=== PATIENT | male | born 1995 | race Caucasian/White ===

== ENCOUNTER 2022-07-28 09:12 | Outpatient (CLI) | payer BC, SELFPAY ==
[2022-07-28 16:48] LABS: Basophils Percent Auto 0.3 % (0.2-1.2); Eosinophils Absolute Auto 0.1 K/mm3 (0-0.3); Eosinophils Percent Auto 0.7 % (0-4.4); Hematocrit 42.8 % (42.0-52.0); Hemoglobin 13.8 g/dL (14.0-18.0); Immature Granulocyte Absolute 0.02 K/mm3 (0.00-0.031); Immature Granulocyte Percent A 0.3 % (0-0.5); Lymphocytes Absolute Auto 1.99 K/mm3 (0.9-3.2); Lymphocytes Percent Auto 28.5 % (18.3-44.2); Mean Corpuscular HGB Conc 32.2 g/dl (32-36); Mean Corpuscular Hemoglobin 27.4 pg (26-34); Mean Corpuscular Volume 84.9 fl (80-100); Mean Platelet Volume 10.4 fl (7.4-10.4); Monocytes Absolute Auto 0.6 K/mm3 (0.1-0.6); Monocytes Percent Auto 7.9 % (2.6-8.5); Neutrophils Absolute Auto 4.4 K/mm3 (1.3-6.7); Neutrophils Percent Auto 62.3 % (45.5-73.1); Platelet Count Result 254 k/mm3 (150-375); Red Blood Count 5.04 M/mm3 (4.6-6.20); Red Cell Distribution Width 12.6 % (11.5-14.5)
[2022-07-28 17:45] LABS: Alanine Aminotransferase 61 U/L (6-50); Albumin Level 4.5 g/dL (3.5-5.1); Alkaline Phosphatase 90 U/L (38-126); Anion Gap 9 mmol/L (8-16); Aspartate Amino Transferase 63 U/L (17-59); Bilirubin,Total 0.5 mg/dL (0.2-1.3); Blood Urea Nitrogen 13 mg/dL (9-20); Calcium 9.3 mg/dL (8.4-10.2); Carbon Dioxide 26 mmol/L (22-30); Chloride 102 mmol/L (98-107); Cholesterol 151 mg/dL (0-200); Estimated Glomerular Filt Rate > 60; Glucose 90 mg/dL (65-110); HDL Direct 40 mg/dL; Potassium 4.4 mmol/L (3.4-5.0); Sodium 137 mmol/L (137-145); Triglycerides 115 mg/dL (<150)
[2022-07-28 17:57] LABS: LDL Cholesterol Direct 73 mg/dL
[2022-07-28 17:59] LABS: Hemoglobin A1C 5.1 % (<5.7)
[2022-08-01 13:39] LABS: Insulin Level Total 26.2 uIU/mL (<=19.6)
== END 2022-07-28 09:13 | disposition home or self-care (01) ==
LOC: ANHGOSHLAB 09:16
PROVIDERS: PCP Physician Assistant; Visit Provider Physician Assistant
DX: Z13.220 Encounter for screening for lipoid disorders (principal); Z13.1 Encounter for screening for diabetes mellitus; E66.01 Morbid (severe) obesity due to excess calories; Z79.899 Other long term (current) drug therapy
CPT/HCPCS: 36415; 80053; 80061; 83036; 83525; 84439; 84443; 85025

== ENCOUNTER 2023-02-05 19:06 | Emergency (ER) | payer BC, SELFPAY ==
[2023-02-05 19:20] VITALS: BP 152/88; PULSE 105; RESP 16; TEMP 36.8; O2SAT 100
--- NOTE | 2023-02-05 20:11 | ED.WOUNDLAC ---
HPI - Wound/Laceration General Chief Complaint: Wound/Laceration Stated Complaint: wound on chest Time Seen by Provider: 02/05/23 19:40 Source: patient, RN notes reviewed and old records reviewed Mode of arrival: ambulatory Limitations: no limitations History of Present Illness HPI narrative: 27 year [facility] complaint of small open area under left breast. He had what he thought was a scsb there and it came off when he showered and now 0.5cm diameter open minimal depth wound noted with some surrounding redness and tenderness on palpation. Patient reports that he put some Neosporin ointment and band-aide to area. Patient denies any fevers,chills or sweats or any body aches. Onset (ago): hour(s) (yesterday scab and today noted whole in skin under breast) Location: other (under left breast) Treatments prior to arrival: bandage and other (Neosporin ointment) Related Data Home Medications Medication Instructions Recorded Confirmed albuterol sulfate 90 mcg/actuation 90 inh inhalation Q4-6H 02/05/23 02/05/23 aerosol inhaler budesonide-formoterol HFA 160 2 puff inhalation HS 02/05/23 02/05/23 mcg-4.5 mcg/actuation aerosol inhaler (Symbicort) citalopram 10 mg tablet 10 mg PO DAILY 02/05/23 02/05/23 fluticasone propionate 50 2 spray intranasal DAILY 02/05/23 02/05/23 mcg/actuation nasal spray,suspension Allergies Allergy/AdvReac Type Severity Reaction Status Date / Time No Known Allergies Allergy Verified 02/05/23 19:15 Review of Systems Review of Systems: CONSTITUTIONAL: Denies fever, chills, or sweats. EYES: Denies visual changes, redness, or discharge. ENT: Denies rhinorrhea, congestion, sore throat, or otalgia. CARDIOVASCULAR: Denies chest pain, palpitations, or edema. RESPIRATORY: Denies cough or dyspnea. GASTROINTESTINAL: Denies abdominal pain, nausea, vomiting, or diarrhea. GENITOURINARY: Denies dysuria or hematuria. SKIN: Denies rash or itching Patient has .0.5cm open wound to area under left breast, minimal depth of wound, some surrounding redness and discomfort on palpation. MUSCULOSKELETAL: Denies back pain, joint pain, or myalgia. NEUROLOGIC: Denies headache, numbness, or weakness. PSYCHIATRIC: Positive history of anxiety or depression. All systems reviewed & are unremarkable except as noted in HPI and below PMFSH Past Medical History Medical History (Updated 02/06/23 @ 17:31 by Diana Brizuela NP) Anxiety and depression Asthma Left tibial fracture Morbid obesity Surgical History Surgical History (Updated 02/06/23 @ 17:28 by Diana Brizuela NP) H/O sinus surgery Social History Social History (Updated 02/06/23 @ 17:29 by Diana Brizuela NP) Smoking status: Never smoker Alcohol intake: never Substance use: never Gender identity (if verbalized by the patient): Male Comments At time of signature, agree with nursing past medical, surgical, social and family history. There is no relevant family history pertinent to the presenting complaint Exam Narrative: GENERAL: Well-appearing, well-nourished, morbidly obese BMI 58.7kg/m2 and in no acute distress. HEAD: Normocephalic, atraumatic. EYES: PERRLA and EOMI. ENT: Nares clear, no rhinorrhea or epistaxis. Mucous membranes moist.TM's normal throat pink with no swelling NECK: Supple. no lymphadenopathy CHEST: Clear to auscultation. No respiratory distress. HEART: Regular rate and rhythm. No murmur heard. Normal peripheral pulses. ABDOMEN: Soft, nontender, nondistended, normal active bowel sounds. EXTREMITIES: Normal range of motion. No edema. SKIN: Warm, dry, no rash. Patient has 0.5cm diameter wound with minimal depth to area under left breast tissue, no drainage noted, slight redness around wound and some tenderness on palpation. NEURO: No focal deficits. Alert and oriented x3. Course Course Emergency Course: Patient is aware of diagnosis, understands and agrees to treatment plan.?
== END 2023-02-05 20:26 | disposition home or self-care (01) ==
PROVIDERS: Emergency Provider Registered Nurse; PCP Physician Assistant
DX: S21.102A Unspecified open wound of left front wall of thorax without penetration into thoracic cavity, initial encounter (principal); X58.XXXA Exposure to other specified factors, initial encounter; J45.909 Unspecified asthma, uncomplicated; F41.9 Anxiety disorder, unspecified; F32.A Depression, unspecified
CPT/HCPCS: 99213; G0463

== ENCOUNTER 2025-04-14 13:59 | Emergency (ER) | payer BC, SELFPAY ==
--- NOTE | ~2025-04-14 | XR_ITS ---
Exam: Left wrist minimum 3 views CLINICAL HISTORY: Fall. Comparisons: None. TECHNIQUE: 4 images of the left wrist were obtained. FINDINGS: Soft tissue swelling about the left wrist. Bone mineralization is within normal limits. No fracture. No dislocation. IMPRESSION: 1. No acute bony abnormality identified. If symptoms persist or worsen, consider a short-term follow-up study or additional imaging for furthe r assessment. Reviewed, dictated and finalized at location A. IMPRESSION: 1. No acute bony abnormality identified. If symptoms persist or worsen, consider a short-term follow-up study or additio nal imaging for further assessment.
--- NOTE | ~2025-04-14 | XR_ITS ---
EXAMINATION: XR ankle LT min 3V DATE: 04/14/2025 14:22 INDICATION: Left ankle injury post fall TECHNIQUE: Anteroposterior, oblique, mortise, and lateral views of the left ankle were obtained. COMPARISON: None. FINDINGS: Alignment is normal. No fracture. Joint spaces are well maintained. No ankle joint effusion. Promin ent soft tissue swelling about the lateral malleolus. IMPRESSION: 1. No osseous abnormality. Reviewed, dictated and finalized at location A. IMPRESSION: 1. No osseous abnormality.
[2025-04-14 14:04] VITALS: BP 139/86; PULSE 120; RESP 16; TEMP 36.8; O2SAT 98
--- OUTSIDE RECORDS SUMMARY | 2025-04-14 14:23 | XMS_ITS | Clinical Summary ---
Author Organization [facility] [employer] Address [address] [place] [address] Care Team Providers Care Field Installer Name Role Phone Unavailable Primary Care Provider Unavailabl e Source Comments [facility] [employer],non-owned Affiliates and Associated Physician Practices is amultiple site organization consisting of ambulatory clinics and hospital sitesin [place], [place], [place] and [place]. This disclosure is being madepursuant to the Care Everywhere program and may not contain all information available regarding this patient. Last updated 18.[facility] [employer] Allergies No known active allergies Medications * Be aware that medications may not be up to date on this document. Alwaysverify current medications with the patient. triamcinolone (NASACORT AQ) 55 MCG/ACT nasal inhaler [place] 2 Sprays into each nostril once daily for 92 days. 3 Inhaler 4 3 Active ALBUTEROL IN as needed. Active fluticasone propionate (FLONASE) 50 MCG/ACT nasal spray [place] 1 [place] into each nostril 2 times daily. 3 Bottle 0 4 Active albuterol HFA (PROAIR HFA) 108 (90 BASE) MCG/ACT inhaler Inh[place] 2 Puffs by mouth every 4 hours as needed for Shortness of Breath, Wheezing or Cough 1 Inhaler 5 5 Active montelukast (SINGULAIR) 10 MG tablet Take 1 Tab by mouth every evening for 30 days 90 Tab 11 5 Active fluticasone-mk meterol (ADVAIR DISKUS) 250-50 MCG/DOSE inhaler Inhale 1 Puff by mouth 2 times daily 1 Inhaler 11 5 Active azithromycin (ZITHROMAX) 250 MG tablet Take 2 tablets now, then 1 tablet daily for 4 days. 6 Tab 0 5 Active Active Problems Problem Noted Date Diagnosed Date Allergic rhinitis 11/29/2012 BMI (body mass index), pediatric, 95-99% for age 0311/29/2012 Acne 02/03/2011 Asthma, moderate persistent 02/03/2011 Immunizations Immunization Administration Dates Next Due DPT 07/17/1997,04/30/1997,02/24/1997 DTaP VACCINE IM (6wk-6yrs) 12/12/2001,07/07/1998 HEP A PEDS 2 DOSE 07/26/2008,02/28/2007 HEP B VACCINE, PED/ADOL 10/13/1997,01/28/1997, HIB BOOSTER 07/09/1998, 7,04/30/1997, 7 MENINGOCOCCAL ACWY (MCV4P) VAC IM 03/01/2015,11/2010 MMR 12/12/2001,01/05/1998 POLIO IPV 12/12/2001,04/30/1997,02/24/1997 POLIO OPV 04/07/1998 PPD 12/12/2001,01/05/1998 TDAP (7yrs+) 02/28/2007 VARICELLA 03/25/2008,04/07/1998 Social History Tobacco Use Types Packs/Day Years Used Date Smoking Tobacco: Never Alcohol Use Standard Drinks/Week Comments Not Asked 0 (1 standard drink = 0.6 oz pur e alcohol) Sex and Gender Information Value Date Recorded Sex Assigned at Not on file Legal Sex Male 6:50 AM SERVICE DEVELOPER Gender Identity Not on file Sexual Orientation Not on file Last Filed Vital Signs Vital Sign Reading Time Taken Comments Blood Pressure 132/72 03/01/2015 10:13 AM CDT Pulse 72 03/01/2015 10:13 AM CDT Temperature 37 C (98.6 F) 08/17/2014 11:09 AM SERVICE DEVELOPER Respiratory Rate 20 02/03/2011 9:18 AM CDT Oxygen Saturation 96% 02/06/2014 10: 43 AM CDT Inhaled Oxygen Concentration - - Weight 100.5 kg (221 lb 9.6 oz) 015 10:13 AM CDT Height 167.6 cm (5' 6) 03/01/2015 10:1 3 AM CDT Body Mass Index 35.77 03/01/2015 10:13 AM CDT Plan of Treatment Health Maintenance Due Date Last Done Comments HIV SCREENING 12/27/2011 HEPATITIS C SCREENING 12/22/2014 DTAP/TDAP/TD VACCINES (7 - Td or Tdap) 02/28/2017 02/28/2007, 12/12/2001, 07/07/1998, Additional history exists HPV VACCINE (1 - 3-dose SCDM series) 12/27/2023 COVID-19 VACCINE ( season) 2024 DEPRESSION SCREENING 09/03/2024 INFLUENZA VACCINE (#1) 2025 ZOSTER VACCINE (1 of 2) 2046 HEPATITIS B VACCINE Completed 10/13/1997, 01/28/1997, 1996 HIB VACCINE Completed 07/09/1998, 07/04, 04/30/1997, Additional history exists MENINGOCOCCAL GROUPS A/C/Y/W VACCINE Completed 03/01/2015, 02/03/2011 MENINGOCOCCAL (Group B) VACCINE SHARED DECISION-MAKING Aged Out No longer eligible based on patient's age to complete this topic PNEUMOCOCCAL VACCINE Aged Out No long er eligible based on patient's age to complete this topic Goals Goal Patient Goal Type Associated Problems Recent Progress Patient-Stated? Author Exercise 3X per week (30 min per time) Exercise On track( 015 10:18 AM CDT) Vernell Blanca RN Note: Caring for Your Child s Allergic Rhinitis Rhinitis Symptoms & Diagnosis: Allergic rhinitis symptoms include: o Itching in the nose, roof of the mouth, throat, eyes o Sneezing o Stuffy nose (congestion) o Runny nose o Tearing eyes o Dark Circles under the eyes Hay fever symptoms tend to flare up in the spring and fall. Perennial allergic rhinitis symptoms are year-long. Where can I go for more information? [place] [employer] ( ) [email or web address] [email or web address] [place] [employer], [employer] & Immun[employer] [email or web address] Use safety retraint in car Lifestyle On track( 015 10:18 AM CDT) Vernell Blanca RN Take recommended medication(s) Lifestyle On track( 015 11:12 AM CDT) Catherine Braden, FISHING REEL ASSEMBLER-DINING SERVICES DIRECTOR Note: Caring for Your Child s Allergic Rhinitis Rhinitis Symptoms & Diagnosis: Allergic rhinitis symptoms include: o Itching in the nose, roof of the mouth, throat, eyes o Sneezing o Stuffy nose (congestion) o Runny nose o Tearing eyes o Dark Circles under the eyes Hay fever symptoms tend to flare up in the spring and fall. Perennial allergic rhinitis symptoms are year-long. Where can I go for more information? [place] [employer] ( ) www.[email or web address] [email or web address] [place] [employer] & Immun[employer] [email or web address] Insurance [facility]MERLY [facility]1983
--- OUTSIDE RECORDS SUMMARY | 2025-04-14 14:23 | XMS_ITS | Clinical Summary ---
Author Organization [facility] Address [address] [facility] [place] [address] Care Team Providers Care Cabinet Professional Name Role Phone Gianna Farrar Primary Care Pr ovider Allergies No known active allergies Medications oxyCODONE-acetamino phen (PERCOCET) 5-325 mg per tabletIndications:P ain Take 1 tablet by mouth every 4 (four) hours as needed for pain 10 tablet 4 Active tamsulosin (FLOMAX) 0.4 mg extended release capsule Take 1 capsule (0.4 mg total) by mouth daily 30 capsule 4 Active ketorolac (TORADOL) 10 mg tablet Take 1 tablet (10 mg total) by mouth every 6 (six) hours as needed for pain 20 tablet 4 Active ondansetron ODT (ZOFRAN-ODT) 4 mg disintegrating tablet Dissolve 1 tablet for mild to moderate nausea or vomiting or 2 tablets for severe nausea or vomiting oral twice a day as needed. 10 tablet 4 Active Social History Tobacco Use Types Packs/Day Years Used Date Smoking Tobacco: Never Assessed Personal Safety Answer Date Recorded Have you ever been in or are you currently in a harmful physical or emotional relationship or is someone making you feel afraid or unsafe? Denies 06/11/2024 Sex and Gender Information Value Date Recorded Sex Assigned at Not on file Legal Sex Male 4:43 AM CDT Gender Identity Not on file Sexual Orientation Not on file Last Filed Vital Signs Vital Sign Reading Time Taken Comments Blood Pressure 111/83 06/11/2024 6:30 AM CDT Pulse 97 06/11/2024 6:30 AM CDT Temperature 37.1 C (98.7 F) 06/11/2024 4:49 AM CDT Respiratory Rate 16 06/11/2024 6:30 AM CDT Oxygen Saturation 100% 06/11/2024 6:30 AM CDT Inhaled Oxygen Concentration - - Weight 145.2 kg (320 lb) 06/11/2024 4:49 AM CDT Height 167.6 cm (5' 6) 06/11/2024 4:49 AM CDT Body Mass Index 51.65 06/11/2024 4:49 AM CDT Plan of Treatment Health Maintenance Due Date Last Done Comments Depression Screening 1996 Hepatitis C Screening 1996 Regular Well Visit/Exam 18-64 2014 Pneumococcal vaccine <65 (1 of 2 - PCV) 12/27/2015 DTaP/Tdap/Td Vaccine (4 - Td or Tdap) 02/28/2017 02/28/2007, 12/12/2001, 07/07/1998 HPV Vaccines (1 - 3-dose SCDM series) 12/27/2023 Covid-19 Vaccine (3 - 2023- season) 2024, 11/09/2020 Influenza Vaccine (#1) 2025 08/18/2021 Hepatitis B Screening Completed 10/13/1997 , 01/28/1997, 1996 Varicella Vaccines Completed 03/25/2008, 04/07/1998 Insurance [facility] ACCESS CHOICE [facility] Address: [facility] [id number] [place] [address] FORMERLY [facility] ACCESS CHOICE Care Teams Cabinet Professional Relationship Specialty Start Date End Date Gianna Farrar PA [address] [place] [phone] PCP - General Physician Jewelry Drilling Machine Operator 06/11/24
--- NOTE | 2025-04-14 14:43 | ED.FALL ---
HPI - Fall General Chief Complaint: Extremity Injury, Lower Stated Complaint: left ankle and left wrist pain. fall today. Time Seen by Provider: 04/14/25 14:37 History of Present Illness HPI Narrative: Pt tripped on sidewalk and rolled left ankle and landed n left wrist. Pt complains of pain to left ankel with movement and some lateral swelling and pain to left wrist with movement. Pt denies LOC or other injury. Related Data Home Medications ?Medication ?Instructions ?Recorded ?Confirmed ?Last Taken ?Type albuterol sulfate 90 mcg/actuation 90 inh inhalation Q4-6H 02/05/23 02/05/23 Unknown History aerosol inhaler budesonide-formoterol HFA 160 2 puff inhalation HS 02/05/23 02/05/23 Unknown History mcg-4.5 mcg/actuation aerosol inhaler (Symbicort) citalopram 10 mg tablet 10 mg PO DAILY 02/05/23 02/05/23 Unknown History fluticasone propionate 50 2 spray intranasal DAILY 02/05/23 02/05/23 Unknown History mcg/actuation nasal spray,suspension Allergies Allergy/AdvReac Type Severity Reaction Status Date / Time No Known Allergies Allergy Verified 04/14/25 14:07 Review of Systems Review of Systems: All systems reviewed & are unremarkable except as noted in HPI and below PMFSH Past Medical History Medical History (Updated 04/14/25 @ 15:32 by Loly Case III, DO) Left tibial fracture Morbid obesity Anxiety and depression Asthma Surgical History Surgical History (Updated 02/06/23 @ 17:28 by Diana Brizuela NP) H/O sinus surgery Social History Social History (Updated 02/06/23 @ 17:29 by Diana Brizuela NP) Smoking status: Never smoker Alcohol intake: never Substance use: never Gender identity (if verbalized by the patient): Male Exam Const: General: healthy appearing Nutritional Appearance: well nourished Orientation/consciousness: patient oriented x3 Limitations: no limitations HENMT: Head: normal to inspection Neck: Neck: normal visual inspection Resp: Effort & Inspection: normal respiratory effort Auscultation: clear to auscultation bilaterally Cardio: Rate: regular rate Rhythm: regular rhythm GI: GI Palp: Yes Soft to palpation and No Tenderness to palpation present (GI) Auscultation: normal bowel sounds Skin: General skin exam: normal color Rashes: no rashes Wounds: no wounds Neuro: General: patient oriented x3, moves all extremities, no meningeal signs and no focal motor deficits Speech: normal speech Extrem: Other: tender with swelling lateral malleolus and tender no swelling left wrist Psych: Mental Status: mental status grossly normal Affect: normal affect Attitude: cooperative Course Vital Signs Vital signs: Vital Signs Temperature 98.2 F 04/14/25 14:04 Pulse Rate 120 H 04/14/25 14:04 Respiratory Rate 16 04/14/25 14:04 Blood Pressure 139/86 04/14/25 14:04 Pulse Oximetry 98 04/14/25 14:04 Temperature 98.2 F 04/14/25 14:04 Pulse Rate 105 H 04/14/25 15:50 Respiratory Rate 16 04/14/25 15:50 Blood Pressure 122/70 04/14/25 15:50 Pulse Oximetry 95 04/14/25 15:50 MDM - Fall MDM Narrative Medical decision making narrative: Pt has some pain and tenderness to left ankle and wrist after ground level fall. will get x rays to rule out fx. no fx on x ray. narendra provide crutches and mandi wrap and give some naprosyn for pain. Discharge Plan Discharge Clinical Impression: Ankle sprain, Left wrist sprain Patient Disposition: Home Condition: Stable Instructions: Antibiotic Form, Ankle Sprain (ED), Wrist Sprain (ED) Patient Language: Vietnamese Prescriptions: New naproxen [Naprosyn] 500 mg tablet 500 mg PO BID Qty: 20 0RF No Action citalopram 10 mg tablet 10 mg PO DAILY albuterol sulfate 90 mcg/actuation HFA aerosol inhaler 90 inh INHALATION Q4-6H fluticasone propionate 50 mcg/actuation spray,suspension 2 spray INTRANASAL DAILY budesonide-formoterol [Symbicort] 160-4.5 mcg/actuation HFA aerosol inhaler 2 puff INHALATION HS mupirocin 2 % ointment 1 applic topical BID Qty: 22 0RF cephalexin 500 mg capsule 500 mg PO Q8H Qty: 21 0RF Follow-up/Referrals: Charan,PATRICIA Katz [Primary Care Provider] -
--- OUTSIDE RECORDS SUMMARY | 2025-04-14 15:16 | XMS_ITS | Clinical Summary ---
Author Organization [facility] Address [address] [facility] [place] [address] Care Team Providers Care Senior Controls Technician Name Role Phone Gianna Farrar Primary Care [...] 1996 Varicella Vaccines Completed 03/25/2008, 04/07/1998 Insurance [facility] ACCESS CHOICE [facility] ACCESS CHOICE Care Teams Senior Controls Technician Relationship Specialty Start Date End Date Gianna Farrar PA [address] [place] [phone] PCP - General Physician Cigar Head Stringer 06/11/24
--- OUTSIDE RECORDS SUMMARY | 2025-04-14 15:16 | XMS_ITS | Clinical Summary ---
Author Organization [facility] [employer] Address [address] [place] [address] Care Team Providers Care Outpatient Coder Name Role Phone Unavailable Primary Care Provider Unavailabl e Source Comments [facility] [employer],non-owned Affiliates and Associated Physician Practices is amultiple site organization consisting of ambulatory clinics and hospital sitesin [place], [place], [place] and [place]. This disclosure is being madepursuant to the Care Everywhere program and may not contain all information available regarding this patient. Last updated 18.[facility] [employer] Allergies No known active allergies Medications * Be aware that medications may not be up to date on this document. Alwaysverify current medications with the patient. triamcinolone (NASACORT AQ) 55 MCG/ACT nasal inhaler [place] 2 Sprays into each nostril once daily for 92 days. 3 Inhaler 4 3 Active ALBUTEROL IN as needed. Active fluticasone propionate (FLONASE) 50 MCG/ACT nasal spray [place] 1 [place] into each nostril 2 times daily. 3 [...] on file Legal Sex Male 6:50 AM PHOTOGRAPHER NEWS Gender Identity Not on file Sexual Orientation Not on file Last Filed Vital Signs Vital Sign Reading Time Taken Comments Blood Pressure 132/72 03/01/2015 10:13 AM CDT Pulse 72 03/01/2015 10:13 AM CDT Temperature 37 C (98.6 F) 08/17/2014 11:09 AM PHOTOGRAPHER NEWS Respiratory Rate 20 02/03/2011 9:18 AM CDT [...] Where can I go for more information? [employer] [place] [employer] ( ) [email or web address] [email or web address] [employer] [place] [employer] & Immun[employer] [email or web address] Use safety retraint in car Lifestyle On track( 015 10:18 AM CDT) Vernell Blanca RN Take recommended medication(s) Lifestyle On track( 015 11:12 AM CDT) Catherine Braden, PHOTOGRAMMETRIC TECH-OIL TANKER CAPTAIN Note: Caring for Your Child s Allergic [...] Where can I go for more information? [employer] [place] [employer] ( ) [email or web address] [email or web address] [employer] [place] [employer] & Immun[employer] [email or web address] Insurance [facility]
[2025-04-14] MEDS: NAPROXEN 500 MG TABLET PO (15:20)
[2025-04-14 15:50] VITALS: BP 122/70; PULSE 105; RESP 16; O2SAT 95
== END 2025-04-14 16:05 | disposition home or self-care (01) ==
PROVIDERS: Emergency Provider Emergency Medicine; PCP Physician Assistant
DX: S93.402A Sprain of unspecified ligament of left ankle, initial encounter (principal); S96.912A Strain of unspecified muscle and tendon at ankle and foot level, left foot, initial encounter; X50.0XXA Overexertion from strenuous movement or load, initial encounter
CPT/HCPCS: 73110; 73610; 99284; A9270